=== PATIENT | female | born 1975 | race Caucasian/White ===

== ENCOUNTER 2016-08-07 10:54 | Emergency (ER) | payer BC ==
[2016-08-07 14:13] LABS: Hematocrit 36.8 % (37.0-47.0); Hemoglobin 12.6 gm/dL (12.5-16.0); Mean Cell Volume 90.6 fl (78-100); Mean Corpuscular Hgb Conc 34.2 g/dl (32-36); Neutrophil # 3.2 K/mm3 (1.3-6.0); Neutrophil % 65.5 % (42-75.0); Platelet Count 206 K/mm3 (150-450); Red Blood Count 4.06 M/mm3 (4.2-5.4); White Blood Count 4.9 K/mm3 (4.0-10.5)
[2016-08-07 14:25] LABS: Prothrombin Time (Patient) 10.5 Seconds (9.4-11.4)
[2016-08-07 14:26] LABS: INR 1.01 INR (0.90-1.10); Partial Thrombolplastin Time 24.1 Seconds (24-32)
[2016-08-07 14:28] LABS: Albumin * 4.3 gm/dl (3.4-5.0); Anion Gap 16.9 mmol/L (6.8-13.8); BUN/Creatinine Ratio 14.5 (9.0-21.6); Bilirubin, Total 0.9 mg/dL (0.0-1.1); Ca. Corrected For Albumin 8.8 mg/dL (8.4-10.2); Calcium * 9.4 mg/dL (7.9-10.9); Carbon Dioxide 23.2 mmol/L (24-32.6); Potassium 4.1 mmol/L (3.4-4.6); Total Protein 6.8 gm/dL (6.2-8.2)
[2016-08-07] MEDS ORDERED: DEXAMETHASONE SOD PHOSPHATE 10 MG/ML VIAL IV ONE (14:39)
[2016-08-07] MEDS ORDERED: FAMOTIDINE 10 MG/ML VIAL IV ONE ×2 (14:39→14:43)
[2016-08-07] MEDS ORDERED: KETOROLAC TROMETHAMINE 30 MG/ML VIAL IV ONE (14:39)
--- NOTE | 2016-08-07 14:39 | ERNOTE ---
Headache ER HPI - Narrative Date of Service: 08/07/16 - General Presenting Symptoms: headache Time Seen by Provider: 08/07/16 13:43 Source: patient Exam Limitations: no limitations - Immun/Allergies/Home Medications Allergies/Adverse Reactions: Allergies No Known Allergies Allergy (Verified 05/24/15 08:26) Home Medications: HOME MEDICATIONS Clonazepam 4 mg PO HS 08/18/14 [Last Taken 08/07/16] Gabapentin 300 mg PO TID 08/18/14 [Last Taken 08/07/16] Cholecalciferol (Vitamin D3) [Vitamin D3] 50,000 unit PO Q7D 05/23/15 [Last Taken 08/07/16] Dimethyl Fumarate [Tecfidera] 120 mg PO BID 05/23/15 [Last Taken 08/07/16] Gabapentin [Neurontin] 600 mg PO HS 05/23/15 [Last Taken 08/07/16] buPROPion HCL [Wellbutrin SR, Zyban] 150 mg PO BID 05/23/15 [Last Taken 08/07/16 ] Butalb/Acetaminophen/Caffeine [Fioricet 50-300-40 mg Capsule] 1 each PO Q8H #9 capsule 08/07/16 [Last Taken Unknown] - Pain Pain Score: 8 - History of Present Illness Narrative: Patient comes due to an intractable headache for over a week. Patient has Hx of MS and she has noticed pain behind her L eye area. Patient with generalized weakness. Patient at the moment is not using any steroids for her condition. Timing of Headache: gradual, still present, constant, worse, persistent Context Headache: Absent: CO exposure, tick bite, insect bite, sick contact, meningitis exposure, recent head injury < 24 hrs ago, recent head injury > 24 hrs, recent travel-outside [place] Quality: Present: sharp, throbbing Severity Maximum: Present: moderate, severe Severity-Currently: Present: moderate Headache frequency: Present: no recent headache Modifying Factors - (Improves): Reports: other - nothing Modifying Factors - (Worsens): Reports: other - nothing Associated Symptoms: Reports: nausea, weakness, numbness/tingling. Denies: fever/chills, vomiting, sweating, nasal congestion, nasal drainage, facial pain , fatigue, confusion, loss of consciousness, seizures, neck pain/stiffness, speech problems Exacerbated by:: Reports: light, noise, movement Prior Treament: Reports: recently seen - Patient was seen by her neurologist 2 weeks ago, but she had no LOVE at that point Review of Systems - Review of Systems Constitutional: Present: recent illness, weakness, malaise EYE: Present: eye pain - L retro-orbital area ENT: Present: no symptoms reported Respiratory: Present: no symptoms reported Cardiology: Present: no symptoms reported Gastrointestinal/Abdominal: Present: no symptoms reported Genitourinary: Present: no symptoms reported Musculoskeletal: Present: muscle pain Skin: Present: no symptoms reported Neurological: Present: headache, weakness, numbness Endocrine: Present: no symptoms reported Hematologic/Lymphatic: Absent: easy bruising, easy bleeding Psych: Present: no symptoms reported - Narrative Narrative: Patient has Hx of Multiple Sclerosis - Patient's Past Medical History Patient History - Medical: Anxiety, Headache, Migraines Patient History - Cancer: No Hx of Cancer Patient History - Surgical Procedures: Cholecystectomy - Family History Mother Family History - Medical: No pertinent hx Father Family History - Medical: No pertinent hx - Social History Living Situations: home Smoking Status: Never smoker Have you smoked in the past 12 months: No Do you dip or chew tobacco: No Alcohol Use: none Drug Use: none Physical Exam - Physical Exam General Appearance: Present: wd/wn, alert, no apparent distress, other - Patient seem in mild pain Eye Exam: Normal inspection: bilateral, PERRL: bilateral, EOMI: bilateral, Photophobia: bilateral Ears, Nose, Throat: Present: normal ENT inspection, hearing grossly normal, normal pharynx Neck: Present: normal inspection, nontender Respiratory: Present: no respiratory distress, normal breath sounds, no accessory muscle use, chest nontender, lungs clear Cardiovascular/Chest: Present: regular rate, rhythm, no murmur, normal peripheral pulses Peripheral Pulses: N=norm/S=strong/W=weak/B=bound/A=absent: Carotid (R): Normal , Carotid (L): Normal, Radial (R): Normal, Radial (L): Normal, Dorsalis-pedis (R ): Normal, Dorsalis-pedis (L): Normal Gastrointestinal/Abdominal: Present: normal bowel sounds, nontender, nondistended, soft, no organomegaly Rectal Exam: Present: nontender, normal rectal tone Back Exam: Present: normal inspection, normal range of motion, no CVA tenderness , no vertebral tenderness Extremity Exam: Present: normal inspection, non-tender, no edema, normal range of motion Neurological Exam: Present: alert, oriented, horse identifier II-XII nml as tested. Absent: facial droop, motor weakness, disoriented to person, disoriented to time, disoriented to place, disoriented to situation DTR: N=norm/NB=norm/brisk/A=abs/DD=dull/dimin/HC=hyperactive: Bicep (R): Normal , Bicep (L): Normal, Knee (R): Normal, Knee (L): Normal Skin Exam: Present: normal color, warm/dry. Absent: skin rash Lymphatic Exam: Present: no adenopathy ED Progress - Date and Time Seen: Date and Time: 08/07/16 14:32 I had recommended MRI of Brain and C-Spine to patient due to LOVE and finding. At this point Radiology Department has informed me that this Test can't be done at ER and need pre-certification or the patient to be admitted. I had stated the importance of test to exclude an acute relapse of MS and to avoid given unnecessary steroids 08/07/16 14:35 I will call patient's neurologist for consult. 08/07/16 16:10 Patient at the moment has improved. Patient case was presented to Neurologist ( Dr. Mcwilliams) who recommended Prednisone 60mg PO daily for 4 days, then 40mg PO for 4 day, then 20mg PO dialy for 4 days. Patient is to follow up with [facility] and is to see them in office. No MRI at this point recommended by Neurologist for Patient's condition. Patient improved with given Tx and has no gross neurologic deficits. Patient has a full mental status and good social support. - Results and Orders Patient's Lab Results:: I have reviewed the patient's lab results. - Vital Signs Patient's Vital Signs:: I have reviewed the patient's vital signs. Vital Signs: Vital Signs 08/07/16 08/07/16 11:07 13:43 Temperature 36.2 C L Pulse Rate 98 76 Respiratory 18 12 Rate Blood Pressure 139/89 138/86 O2 Sat by Pulse 95 98 Oximetry - CT/Ultrasound CT/Ultrasound Narrative: No acute process reported by Radiologist at this point on report. - Progress/Reassessment Chief Complaint: Headache Progress:: Improved - Transfer of Care Expected Disposition: Discharge Plan - Plan Plan: Patient will be consulted with neurologist. Patient is to follow up with [employer] and Neurologist. Departure Clinical Impression: Headache Qualifiers: Headache type: unspecified Headache chronicity pattern: acute headache Intractability: intractable Qualified Code(s): R51 - Headache - Departure Disposition: Home self-care Condition: Stable Instructions: General Headache Without Cause Referrals: Miguel Vargas MD [Primary Care Provider] - Tristan Mcwilliams MD [Consulting Physician] - Prescriptions: Butalb/Acetaminophen/Caffeine [Fioricet 50-300-40 mg Capsule] 1 each PO Q8H #9 capsule
[2016-08-07] MEDS ORDERED: diphenhydrAMINE HCL 50 MG/ML VIAL IV ONE (14:40)
[2016-08-07] MEDS ORDERED: DEXAMETHASONE SOD PHOSPHATE 10 MG/ML VIAL ONE (14:43)
[2016-08-07] MEDS ORDERED: diphenhydrAMINE HCL 50 MG/ML VIAL ONE (14:44)
[2016-08-07] MEDS ORDERED: KETOROLAC TROMETHAMINE 30 MG/ML VIAL ONE (14:44)
[2016-08-07 15:59] VITALS: BP 113/65
[2016-08-07] MEDS ORDERED: predniSONE 20 MG TABLET ONE (16:03)
[2016-08-07] MEDS ORDERED: predniSONE 20 MG TABLET PO ONE (16:04)
== END 2016-08-07 16:20 | disposition home or self-care (01) ==
LOC: ER 10:54
DX: R51 Headache (principal); Z90.49 Acquired absence of other specified parts of digestive tract